=== PATIENT | male | born 1960 | race American Indian/Alaskan Native ===

== ENCOUNTER 2018-10-08 18:40 | Emergency (ER) | payer MEDICARE ==
[2018-10-08 19:10] VITALS: O2SAT 96
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
[2018-10-08 20:12] LABS: BASO % 0.5 % (0.0-2.0); EOS # 0.1 K/uL (0.0-0.7); EOS % 2.6 % (0.0-4.0); HEMOGLOBIN 10.4 g/dL (12.0-18.0); LYMPH # 0.9 K/uL (1.0-4.3); LYMPH % 17.6 % (20.0-40.0); MEAN CELL VOLUME 78.6 fL (80.0-94.0); MEAN CORPUSCULAR HEMOGLOBIN 24.9 pg (27.0-31.0); MEAN CORPUSCULAR HGB CONC 31.7 g/dL (33.0-37.0); MEAN PLATELET VOLUME 7.8 fL (7.2-11.7); MONO # 0.6 K/uL (0.0-0.8); MONO % 10.9 % (0.0-10.0); NEUT # 3.5 K/uL (1.8-7.0); NEUT % 68.4 % (50.0-75.0); NRBC % 0.1 % (0.0-2.0); RBC 4.17 Mil/uL (4.40-5.90); RED CELL DISTRIBUTION WIDTH 16.5 % (11.5-14.5); WHITE BLOOD COUNT 5.2 K/uL (4.8-10.8)
[2018-10-08 20:24] LABS: INR 1.4; PROTHROMBIN TIME 14.8 SECONDS (9.7-12.2)
[2018-10-08 20:27] LABS: ALB/GLOB RATIO 1.1 (1.0-2.1); ALBUMIN 3.8 g/dL (3.5-5.0); BLOOD UREA NITROGEN 17 mg/dL (9-20); CALCIUM 8.5 mg/dl (8.6-10.4); GFR NON-AFRICAN AMERICAN > 60
[2018-10-08 20:28] LABS: ALT/SGPT 12 U/L (21-72); AST/SGOT 19 U/L (17-59)
[2018-10-08] MEDS ORDERED: Enoxaparin 40 mg Syringe SC STA (21:11)
[2018-10-08] MEDS ORDERED: Enoxaparin 100 mg Syringe ONE (21:28)
[2018-10-08 21:37] VITALS: BP 151/73; PULSE 77; RESP 18; TEMP 98.1
== END 2018-10-08 21:45 | disposition home or self-care (01) ==
LOC: C.ER 18:40
DX: M79.662 Pain in left lower leg (principal); M79.89 Other specified soft tissue disorders
CPT/HCPCS: 80053; 85025; 85378; 85610; 85730; 96372; 99284; J1650

== ENCOUNTER 2018-10-11 14:24 | Emergency (ER) | payer MEDICARE ==
[2018-10-11 14:45] VITALS: RESP 16
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
[2018-10-11 15:38] VITALS: BP 138/85; PULSE 71; TEMP 98.5
[2018-10-11 15:40] VITALS: O2SAT 96
--- NOTE | 2018-10-12 12:19 | VASCLAB ---
Date of service: 10/11/2018 PROCEDURE: Left Lower Extremity Venous Duplex Exam. HISTORY: Leg swelling and pain, r/o DVT PRIORS: None. TECHNIQUE: Left common femoral, femoral, popliteal and posterior tibial, peroneal and great saphenous veins were evaluated. Flow was assessed with color Doppler, compressibility, assessment of phasic flow and augmentation response. Report prepared by SHAE Rodriguez FINDINGS: LEFT: 1. Common Femoral Vein: 1.1. Compressibility - Fully compressible: Thrombus - None : Flow - Phasic: Augmentation -Normal: Reflux - None. 2. Femoral Vein: 2.1. Compressibility - Fully compressible: Thrombus - None: Flow - Phasic: Augmentation -Normal: Reflux - None. 3. Popliteal Vein: 3.1. Compressibility - Fully compressible: Thrombus - None: Flow - Phasic: Augmentation -Normal: Reflux - None. 4. Posterior Tibial Vein: (Distal view only) limited view due to swelling. 4.1. Compressibility - Fully compressible: Thrombus - None: Flow - Phasic: Augmentation -Normal: Reflux - None. 5. Peroneal Vein: 5.1. Unable to visualize due to swelling. 6. Great Saphenous Vein: 6.1. Compressibility - Fully compressible: Thrombus - None: Flow - Phasic: Augmentation - Normal: Reflux - None. OTHER FINDINGS: Normal venous flow noted in the RIGHT common femoral vein. IMPRESSION: No evidence of deep or superficial vein thrombosis of the left lower extremity, for the examined veins. Normal valve function noted of the left side.
== END 2018-10-11 15:50 | disposition home or self-care (01) ==
LOC: C.ER 14:24
DX: M79.89 Other specified soft tissue disorders (principal)

== ENCOUNTER 2018-12-23 15:14 | Emergency (ER) | payer MEDICARE ==
[2018-12-23 15:24] VITALS: BP 164/84; PULSE 86; RESP 14; TEMP 97.8; O2SAT 98
[2018-12-23] MEDS ORDERED: Oxycodone/Acetaminophen 5/325 mg Tab PO STA (16:28)
--- NOTE | 2018-12-23 16:33 | C.PDOC ---
History Of Present Illness 58 y/o male presents to the ER requesting medication refill for Oxycodone. Patient states that he needs Oxycodone for chronic left leg pain. Patient reports that he was going to . However, he has not been able to continue seeing because he does not have insurance anymore. Denies having trauma, weakness and numbness. Time Seen by Provider: 12/23/18 15:29 Chief Complaint (Nursing): Med Refill History Per: Patient History/Exam Limitations: no limitations Onset/Duration Of Symptoms: Days Current Symptoms Are (Timing): Still Present Severity: Moderate Past Medical History Reviewed: Historical Data, Nursing Documentation, Vital Signs Vital Signs: Last Vital Signs Temp 97.8 F 12/23/18 15:21 Pulse 86 12/23/18 15:21 Resp 14 12/23/18 15:21 BP 164/84 H 12/23/18 15:21 Pulse Ox 98 12/23/18 15:21 - Medical History PMH: Bronchitis, HTN Surgical History: No Surg Hx Family History: States: No Known Family Hx - Social History Hx Alcohol Use: No Hx Substance Use: No - Immunization History Hx Tetanus Toxoid Vaccination: No Hx Influenza Vaccination: No Hx Pneumococcal Vaccination: No Review Of Systems Except As Marked, All Systems Reviewed And Found Negative. Musculoskeletal: Positive for: Leg Pain (chronic left leg pain) Neurological: Negative for: Weakness, Numbness Physical Exam - Physical Exam Appears: No Acute Distress, Chronically Ill, Other (obese) Skin: Normal Color, Warm, Dry, No Rash Head: Atraumatic, Normacephalic Eye(s): bilateral: Normal Inspection Nose: Normal Oral Mucosa: Moist Throat: No Erythema, No Exudate Neck: Normal ROM, Supple Chest: Symmetrical Cardiovascular: No Friction Rub, No Murmur Respiratory: Normal Breath Sounds, No Rales, No Rhonchi, No Wheezing Gastrointestinal/Abdominal: Soft, No Tenderness Back: Normal Inspection, No CVA Tenderness Extremity: Normal ROM, Other (+2 pitting edema to left leg, pt notes edema is chronic) Neurological/Psych: Oriented x3, Normal Speech, Normal Motor Gait: Steady ED Course And Treatment O2 Sat by Pulse Oximetry: 98 (RA) Pulse Ox Interpretation: Normal Medical Decision Making Medical Decision Making: Plan: --Percocet PO The patient was given the hospital's opiate prescription policy and was instructed that we cannot refill narcotic prescriptions. Disposition - Disposition Referrals: Ludy Boswell MD [Medical Doctor] - Disposition: HOME/ ROUTINE Disposition Time: 16:31 Condition: STABLE Additional Instructions: Follow up with the medical doctor within 1-2 days. Return if worsened. Instructions: Lower Extremity Exercises Seated Forms: [facility] (Yoruba) - Clinical Impression Clinical Impression: Pain and swelling of left lower leg - PA / TICKET WRITER / Resident Statement MD/DO has reviewed & agrees with the documentation as recorded. - Scribe Statement The provider has reviewed the documentation as recorded by the Scribe Ricky Conner Provider Attestation All medical record entries made by the Scribe were at my direction and personally dictated by me. I have reviewed the chart and agree that the record accurately reflects my personal performance of the history, physical exam, medical decision making, and the department course for this patient. I have also personally directed, reviewed, and agree with the discharge instructions and disposition.
[2018-12-23] MEDS ORDERED: Oxycodone/Acetaminophen 5/325 mg Tab ONE (16:34)
== END 2018-12-23 16:36 | disposition home or self-care (01) ==
LOC: C.ER 15:14
DX: M79.662 Pain in left lower leg (principal); M79.89 Other specified soft tissue disorders